=== PATIENT | female | born 1995 | race American Indian/Alaskan Native ===

== ENCOUNTER 2022-04-19 09:23 | Outpatient (CLI) | payer MEDICAID ==
[2022-04-19] MEDS ORDERED: SODIUM CHLORIDE 0.9% 100 ML IVPB IV SCH (11:00)
[2022-04-19 11:49] LABS: Hematocrit 28.8 % (30.3-42.9); Hemoglobin 9.5 gm/dl (10.1-14.3); Mean Corpuscular HGB Conc 33 % (30-34); Mean Corpuscular Volume 94 fl (79-97); Platelet Count 223 K/mm3 (140-440); Red Blood Count 3.07 M/mm3 (3.65-5.03); Red Cell Distribution Width 12.8 % (13.2-15.2)
[2022-04-19] MEDS ORDERED: LACTATED RINGERS 1,000 ML ONE (11:58)
[2022-04-19 12:10] LABS: Alanine Aminotransferase 13 units/L (7-56); Albumin 3.5 g/dL (3.9-5); Blood Urea Nitrogen 9 mg/dL (7-17); Calcium 8.4 mg/dL (8.4-10.2); Hemolysis Index 25
[2022-04-19 12:27] LABS: BUN/Creatinine Ratio 15
[2022-04-19 13:24] VITALS: BP 102/65
--- NOTE | 2022-04-19 13:38 | Ultrasound Report ---
ULTRASOUND OBSTETRIC COMPLETE INDICATION / CLINICAL INFORMATION: US FOR DATES. Clinical Gestational Age (GA) in weeks.days: 24.0 TECHNIQUE: Transabdominal. COMPARISON: None available. FINDINGS: NUMBER: Single PRESENTATION: transverse PLACENTA: Posterior, grade 0 and free of the os. MATERNAL ADNEXA: No significant abnormality. AMNIOTIC FLUID VOLUME: normal AMNIOTIC FLUID INDEX (RAULITO) in cm (if measured): 10.5 ANATOMY: anatomical survey was not performed MEASUREMENTS: - Biparietal Diameter = 5.8 cm = 23.5 weeks.days - Head Circumference = 22.3 cm = 24.2 weeks.days - Abdominal Circumference = 18.7 cm = 23.3 weeks.days - Femur Length = 4.5 cm = 24.6 weeks.days - Estimated Weight (in grams, if calculated): 660 - Heart Rate (beats per minute): 152 ADDITIONAL FINDINGS: None. PERCENTILE ESTIMATED WEIGHT (if calculated): 45 AVERAGE ULTRASOUND AGE (AUA) in weeks.days = 24.1 IMPRESSION: 1. Single intrauterine with AUA of 24.1 weeks.days 2. No significant sonographic abnormality. Signer Name: Brain Ty Jr, MD Signed: 04/19/2022 1:34 PM Workstation Name: [id number]
[2022-04-19] MEDS ORDERED: LACTATED RINGERS 500 ML IV ONE (15:00)
== END 2022-04-19 13:40 | disposition home or self-care (01) ==
LOC: TRG 09:23 → APU 09:25 → TRG 13:40
PROVIDERS: ATTEND Obstetrics & Gynecology
DX: O26.892 Other specified pregnancy related conditions, second trimester (principal); R51.9 Headache, unspecified; H53.8 Other visual disturbances; O32.2XX0 Maternal care for transverse and oblique lie, not applicable or unspecified; O99.512 Diseases of the respiratory system complicating pregnancy, second trimester; R06.02 Shortness of breath; J45.909 Unspecified asthma, uncomplicated; Z3A.24 24 weeks gestation of pregnancy
CPT/HCPCS: 36415; 59025; 76816; 80053; 85027; 96360